=== PATIENT | female | born 1955 | race American Indian/Alaskan Native ===

== ENCOUNTER → 2016-10-28 17:28 | Outpatient (CLI) | payer BC | END | disposition home or self-care (01) | LOC: D.MAMMO 16:00 | DX: Z12.31 Encounter for screening mammogram for malignant neoplasm of breast (principal) ==

== ENCOUNTER → 2016-12-21 16:43 | Outpatient (CLI) | payer BC | END | disposition home or self-care (01) | LOC: D.MAMMO 12-09 15:00 → D.US 12-09 15:30 → D.MAMMO 12-15 09:00 | DX: R92.8 Other abnormal and inconclusive findings on diagnostic imaging of breast (principal) ==

== ENCOUNTER → 2017-12-28 19:20 | Outpatient (CLI) | payer BC | END | disposition home or self-care (01) | LOC: D.MAMMO 08:30 | DX: Z12.31 Encounter for screening mammogram for malignant neoplasm of breast (principal) ==

== ENCOUNTER → 2020-03-19 19:00 | Outpatient (CLI) | payer OTHER | END | disposition home or self-care (01) | LOC: D.MAMMO 08:30 | PROVIDERS: ATTEND Nurse Practitioner Family | DX: Z12.31 Encounter for screening mammogram for malignant neoplasm of breast (principal) ==

== ENCOUNTER → 2020-04-02 09:04 | Outpatient (CLI) | payer OTHER ==
[2013-10-09 19:26] VITALS: BMI 28.1
== END | disposition home or self-care (01) ==
LOC: D.MAMMO
PROVIDERS: ATTEND Family Medicine
DX: R92.8 Other abnormal and inconclusive findings on diagnostic imaging of breast (principal)

== ENCOUNTER → 2020-04-08 14:26 | Outpatient (CLI) | payer OTHER ==
--- NOTE | 2020-04-10 10:52 | ST ---
PATIENT:MARTI DIEHL MEDICAL RECORD: [id number] SEX: F LOCATION:[facility] ORDER #: ADMISSION DATE: 04/08/20 AGE OF PATIENT: 64 REFERRING PHYSICIAN: INTERPRETING PHYSICIAN: BRISEYDA VASQUES MD DATE OF SERVICE: 04/08/2020 PROCEDURE: Treadmill stress test. Baseline ECG is normal. Exercised for 9 minutes 30 seconds. Maximum heart rate 156 beats per minute, greater than 95% max predicted. No ECG change for ischemia. No symptoms of ischemia. Normal blood pressure response to exercise. No arrhythmias noted. Good exercise tolerance for age. TRANSINT:[id number] Voice Confirmation ID: [id number] DOCUMENT ID: [id number] BRISEYDA VASQUES MD at 1052 CC: [id number] DICTATION DATE: 04/09/20 1438 FACILITY ASSISTANT: 04/10/20 0707 DEP CLI 04/08/20 [id number] [place] [address]
== END | disposition home or self-care (01) ==
LOC: D.HCCARDIO 14:26
PROVIDERS: ATTEND Internal Medicine Interventional Cardiology
DX: R06.09 Other forms of dyspnea (principal)